=== PATIENT | male | born 1985 | race Caucasian/White ===

== ENCOUNTER 2018-08-15 15:38 | Emergency (ER) | payer OTHER, MEDICAID, MEDICARE ==
[2018-08-15] MEDS: IBUPROFEN 600 MG TAB PO (16:46)
[2018-08-15] MEDS: DIPHTH/TET/ACEL PERTUSS (ADULT) 0.5 ML VIAL IM* (16:47)
== END 2018-08-15 17:34 | disposition home or self-care (01) ==
LOC: FTE 15:38
DX: S81.852A Open bite, left lower leg, initial encounter (principal); F17.210 Nicotine dependence, cigarettes, uncomplicated; J45.909 Unspecified asthma, uncomplicated; W54.0XXA Bitten by dog, initial encounter; Y92.89 Other specified places as the place of occurrence of the external cause; Z23 Encounter for immunization
CPT/HCPCS: 90471; 90715; 99283-25